=== PATIENT | male | born 1980 | race Two or more races ===

== ENCOUNTER 2017-02-02 06:08 | Emergency (ER) | payer SELFPAY ==
[~2017-02-02] VITALS: Ht 175.3 cm; Wt 104.5 kg
[~2017-02-02 06:08] MED LIST: no meds
[2017-02-02 07:29] VITALS: BP 121/73
== END 2017-02-02 07:48 | disposition home or self-care (01) ==
LOC: EMS 06:09
DX: N47.6 Balanoposthitis (principal); Z46.6 Encounter for fitting and adjustment of urinary device
CPT/HCPCS: 99282

== ENCOUNTER 2017-02-11 06:16 | Emergency (ER) | payer SELFPAY ==
[~2017-02-11] VITALS: Ht 175.3 cm; Wt 118.2 kg
[2017-02-11 07:44] LABS: APPEARANCE,URINE TURBID (CLEAR); GLUCOSE, URINE (UA) NEGATIVE (NEGATIVE); KETONES,URINE NEGATIVE (NEGATIVE); LEUKOCYTE ESTERASE ,URINE LARGE (NEGATIVE); OCCULT BLOOD,URINE LARGE (NEGATIVE); PROTEIN,URINE SEE CONFIRM (NEGATIVE)
[2017-02-11 07:45] LABS: ADD UA MICROSCOPIC YES
[2017-02-11 07:46] LABS: SULFOSALICYLIC ACID,URINE 1+ (Negative)
[2017-02-11 07:47] LABS: RBC,URINE >100 /HPF (0-2); WBC,URINE >100 /HPF (0-5)
[2017-02-11 07:48] LABS: SQUAMOUS EPITHELIAL CELL,UR Few /LPF (None Seen)
[2017-02-11] MEDS ORDERED: CIPROFLOXACIN HCL 250 MG TABLET PO ONE (08:00)
[2017-02-11 08:06] VITALS: BP 146/84
== END 2017-02-11 08:10 | disposition home or self-care (01) ==
LOC: EMS 06:17
DX: T83.091A Other mechanical complication of indwelling urethral catheter, initial encounter (principal); N39.0 Urinary tract infection, site not specified
CPT/HCPCS: 87086; 99284

== ENCOUNTER 2018-07-07 16:02 | Emergency (ER) | payer SELFPAY ==
[~2018-07-07] VITALS: Ht 175.3 cm; Wt 136.4 kg
[2018-07-07 16:08] VITALS: BP 160/94
== END 2018-07-07 16:25 | disposition left against medical advice (07) ==
LOC: EMS 16:02
DX: R44.0 Auditory hallucinations (principal); Z53.21 Procedure and treatment not carried out due to patient leaving prior to being seen by health care provider

== ENCOUNTER 2019-02-26 20:36 | Emergency (ER) | payer BC, OTHER ==
[~2019-02-26] VITALS: Ht 180.3 cm; Wt 113.6 kg
[2019-02-26 21:54] VITALS: BP 122/68
== END 2019-02-26 21:57 | disposition home or self-care (01) ==
LOC: EMS 20:37
DX: K29.70 Gastritis, unspecified, without bleeding (principal); I10 Essential (primary) hypertension